=== PATIENT | male | born 1965 | race Caucasian/White ===

== ENCOUNTER 2017-03-07 12:05 | Emergency (ER) | payer MEDICAID ==
[~2017-03-07] VITALS: Ht 190.5 cm; Wt 118.4 kg
[2017-03-07 12:18] VITALS: BP 111/71
[2017-03-07] MEDS ORDERED: ESCI20TA PO (13:00)
== END 2017-03-07 13:56 | disposition home or self-care (01) ==
LOC: ED 13:53
DX: Z76.0 Encounter for issue of repeat prescription (principal); F32.9 Major depressive disorder, single episode, unspecified; F10.129 Alcohol abuse with intoxication, unspecified
CPT/HCPCS: 99283

== ENCOUNTER 2017-03-15 07:27 | Emergency (ER) | payer MEDICAID ==
[~2017-03-15] VITALS: Ht 190.5 cm; Wt 117.6 kg
[~2017-03-15 07:27] MED LIST: ESCI20TA PO
[2017-03-15 07:28] VITALS: BP 123/71
[2017-03-15] MEDS ORDERED: TRAZ100T15 PO (07:34)
[2017-03-15] MEDS ORDERED: NALOXONE 0.4 MG/ML, 1ML ONE (08:27)
== END 2017-03-15 08:09 | disposition home or self-care (01) ==
LOC: ED 08:03
DX: Z76.0 Encounter for issue of repeat prescription (principal); F17.200 Nicotine dependence, unspecified, uncomplicated
CPT/HCPCS: 99283

== ENCOUNTER 2017-03-23 07:25 | Emergency (ER) | payer MEDICAID ==
[~2017-03-23] VITALS: Ht 190.5 cm; Wt 117.1 kg
[~2017-03-23 07:25] MED LIST changes: +TRAZ100T15 PO
[2017-03-23 07:28] VITALS: BP 135/83
== END 2017-03-23 08:13 | disposition home or self-care (01) ==
LOC: ED 08:00
DX: Z76.0 Encounter for issue of repeat prescription (principal); F32.9 Major depressive disorder, single episode, unspecified
CPT/HCPCS: 99283

== ENCOUNTER 2017-04-15 09:40 | Emergency (ER) | payer MEDICAID ==
[~2017-04-15] VITALS: Ht 190.5 cm; Wt 118.0 kg
[2017-04-15 11:49] LABS: RAPID INFLUENZA A Negative (Negative); RAPID INFLUENZA B Negative (Negative)
[2017-04-15 12:13] VITALS: BP 133/78
== END 2017-04-15 12:15 | disposition home or self-care (01) ==
LOC: ED 12:14
DX: B34.9 Viral infection, unspecified (principal); I10 Essential (primary) hypertension
CPT/HCPCS: 87400; 99284

== ENCOUNTER 2017-04-26 07:14 | Emergency (ER) | payer SELFPAY ==
[~2017-04-26] VITALS: Ht 190.5 cm; Wt 120.3 kg
[2017-04-26 07:16] VITALS: BP 132/86
== END 2017-04-26 08:04 | disposition home or self-care (01) ==
LOC: ED 07:55
DX: Z76.0 Encounter for issue of repeat prescription (principal); I10 Essential (primary) hypertension; F17.210 Nicotine dependence, cigarettes, uncomplicated
CPT/HCPCS: 99283

== ENCOUNTER 2017-07-06 00:23 | Inpatient (IN) | payer OTHER ==
[~2017-07-06] VITALS: Ht 190.5 cm; Wt 123.1 kg
[2017-07-06] MEDS ORDERED: ONDANSETRON 2MG/ML, 2ML IVPush ONE (01:00)
[2017-07-06] MEDS ORDERED: SODIUM CHLORIDE 0.9% 1,000ML IVBOLUS ONE ×2 (01:00→02:00)
[2017-07-06] MEDS ORDERED: SODIUM CHLORIDE FLUSH 10ML SYR IVF ONE (01:00)
[2017-07-06 01:17] LABS: HEMATOCRIT 36.1 % (39.2-51.8); HEMOGLOBIN 12.1 g/dL (13.7-18.0); WHITE BLOOD COUNT 5.9 x10^3/uL (3.4-10)
[2017-07-06] MEDS ORDERED: ONDANSETRON 2MG/ML, 2ML ONE (01:17)
[2017-07-06 01:20] LABS: BLOOD UREA NITROGEN 12 mg/dL (7-18)
[2017-07-06 01:25] LABS: ASPARTATE AMINO TRANSFERASE 69 U/L (15-37)
[2017-07-06 01:28] LABS: IS PT STATUS REG ER OR PRE ER? YES
[2017-07-06 01:34] LABS: DIFF TOTAL CELLS COUNTED 100 CELL DIFF
[2017-07-06 01:38] LABS: VERIFY COUNTS? YES
[2017-07-06 01:41] LABS: ANISOCYTOSIS 1+; POLYCHROMASIA 1+
[2017-07-06] MEDS ORDERED: LORazepam 2 MG/ML, 1ML ONE (01:54)
[2017-07-06] MEDS ORDERED: LORazepam 2 MG/ML, 1ML IVPush ONE (02:00)
[2017-07-06] MEDS ORDERED: THIAMINE 100MG TABLET PO ONE (02:00)
[2017-07-06] MEDS ORDERED: THIAMINE 100MG TABLET ONE (02:23)
[2017-07-06] MEDS ORDERED: CEFTRIAXONE PMX 1GM/50ML 50 ML ONE (02:28)
[2017-07-06] MEDS ORDERED: CEFTRIAXONE PMX 1GM/50ML 50 ML IVPB ONE (02:30)
[2017-07-06 04:07] VITALS: BP 123/75
[2017-07-06] MEDS ORDERED: POTASSIUM CHLORIDE 20 MEQ, MAGNESIUM SULFATE 2 GM, THIAMINE 100 MG, MVI ADULT 10 ML, FO... IV SCH (06:27)
[2017-07-06] MEDS: SODIUM CHLORIDE 0.9% 1,000 ML IV SCH ×2 (06:27→13:00)
[2017-07-06] MEDS ORDERED: ACETAMINOPHEN 325 MG TABLET PO PRN (06:30)
[2017-07-06] MEDS ORDERED: CHLORDIAZEPOXIDE 25 MG CAPSULE PO PRN ×3 (06:30)
[2017-07-06] MEDS ORDERED: DOCUSATE 100 MG CAPSULE PO PRN (06:30)
[2017-07-06] MEDS ORDERED: PROMETHAZINE 12.5 MG SUPP PR PRN (06:30)
[2017-07-06] MEDS: NICOTINE 14MG/24 HR PATCH.TD24 TD SCH (06:30)
[2017-07-06] MEDS ORDERED: POLYETHYLENE GLYCOL 17 GM PACKET PO PRN (06:30)
[2017-07-06] MEDS ORDERED: LORazepam 1MG TABLET PO PRN ×4 (06:30)
[2017-07-06] MEDS ORDERED: LORazepam 2 MG/ML, 1ML IV PRN ×3 (06:30)
[2017-07-06] MEDS ORDERED: CHLORDIAZEPOXIDE 10 MG CAPSULE PO PRN (06:30)
[2017-07-06] MEDS ORDERED: ONDANSETRON ODT 4 MG PO PRN (06:30)
[2017-07-06 07:00] VITALS: BP 124/80
[2017-07-06] MEDS ORDERED: CEFTRIAXONE 1,000 MG IV SCH (07:00)
[2017-07-06 07:39] LABS: HEMATOCRIT 34.2 % (39.2-51.8); HEMOGLOBIN 11.6 g/dL (13.7-18.0); WHITE BLOOD COUNT 6.2 x10^3/uL (3.4-10)
[2017-07-06 07:48] LABS: BLOOD UREA NITROGEN 12 mg/dL (7-18)
[2017-07-06 07:54] LABS: ASPARTATE AMINO TRANSFERASE 58 U/L (15-37)
[2017-07-06 07:55] LABS: IS PT STATUS REG ER OR PRE ER? NO
[2017-07-06 08:13] LABS: DIFF TOTAL CELLS COUNTED 100 CELL DIFF
[2017-07-06 08:14] LABS: ANISOCYTOSIS 1+; POLYCHROMASIA 1+; VERIFY COUNTS? YES
[2017-07-06 08:15] LABS: STOMATOCYTES 1+
[2017-07-06] MEDS: HEPARIN 5,000 UNITS/ML, 1ML SQ SCH ×2 (09:00→17:24)
[2017-07-06] MEDS ORDERED: POTASSIUM PHOSPHATE 22 MEQ in SODIUM CHLORIDE 0.9% 500 ML IV ONE (09:00)
[2017-07-06] MEDS ORDERED: POTASSIUM PHOS 4.4 MEQ/ML IV ONE (09:00)
[2017-07-06] MEDS: ASPIRIN 325 MG TABLET EC PO SCH (09:00)
[2017-07-06] MEDS: MULTIVITAMINS/MINERALS TABLET PO SCH (09:17)
[2017-07-06] MEDS ORDERED: ALBUTEROL SULFATE 2.5 MG/3 ML NPPB PRN (10:30)
[2017-07-06] MEDS ORDERED: ALBUTEROL SULFATE 2.5 MG/3 ML NPPB SCH ×2 (11:00→16:00)
[2017-07-06 12:06] VITALS: BP 126/76
[2017-07-06] MEDS: LORazepam 2 MG/ML, 1ML IV PRN ×3 (12:16→22:47)
[2017-07-06 12:41] LABS: IS PT STATUS REG ER OR PRE ER? NO
[2017-07-06 18:49] VITALS: BP 114/74
[2017-07-07] MEDS: CEFTRIAXONE PMX 1GM/50ML 50 ML IV SCH (02:01)
[2017-07-07] MEDS: HEPARIN 5,000 UNITS/ML, 1ML SQ SCH ×3 (02:01→17:48)
[2017-07-07] MEDS: LORazepam 2 MG/ML, 1ML IV PRN ×2 (02:01→05:45)
[2017-07-07 02:11] VITALS: BP 114/74
[2017-07-07] MEDS: SODIUM CHLORIDE 0.9% 1,000 ML IV SCH ×3 (05:07→20:55)
[2017-07-07] MEDS: ASPIRIN 325 MG TABLET EC PO SCH (05:45)
[2017-07-07] MEDS: NICOTINE 14MG/24 HR PATCH.TD24 TD SCH (05:51)
[2017-07-07 07:10] VITALS: BP 112/75
[2017-07-07] MEDS: MULTIVITAMINS/MINERALS TABLET PO SCH (08:38)
[2017-07-07] MEDS: THIAMINE 100MG TABLET PO SCH (13:01)
[2017-07-07] MEDS: FOLIC ACID 1 MG TABLET PO SCH (13:01)
[2017-07-07 14:00] VITALS: BP 117/78
[2017-07-07 18:41] VITALS: BP 108/70
[2017-07-08] MEDS: HEPARIN 5,000 UNITS/ML, 1ML SQ SCH ×3 (02:56→17:39)
[2017-07-08] MEDS: CEFTRIAXONE PMX 1GM/50ML 50 ML IV SCH (02:56)
[2017-07-08] MEDS: LORazepam 0.5MG TABLET PO PRN ×2 (02:56→09:40)
[2017-07-08 03:11] VITALS: BP 120/80
[2017-07-08 05:46] LABS: ASPARTATE AMINO TRANSFERASE 80 U/L (15-37); BLOOD UREA NITROGEN 10 mg/dL (7-18)
[2017-07-08] MEDS: NICOTINE 14MG/24 HR PATCH.TD24 TD SCH (05:51)
[2017-07-08] MEDS: SODIUM CHLORIDE 0.9% 1,000 ML IV SCH ×2 (05:51→14:10)
[2017-07-08] MEDS: ASPIRIN 325 MG TABLET EC PO SCH (05:51)
[2017-07-08 07:08] VITALS: BP 119/81
[2017-07-08] MEDS: MULTIVITAMINS/MINERALS TABLET PO SCH (09:40)
[2017-07-08] MEDS: THIAMINE 100MG TABLET PO SCH (09:40)
[2017-07-08] MEDS: FOLIC ACID 1 MG TABLET PO SCH (09:40)
[2017-07-08 14:02] VITALS: BP 122/84
[2017-07-08] MEDS ORDERED: POTASSIUM PHOS 4.4 MEQ/ML IV ONE (14:30)
[2017-07-08] MEDS ORDERED: POTASSIUM PHOSPHATE 22 MEQ in SODIUM CHLORIDE 0.9% 500 ML IV ONE (15:00)
[2017-07-08] MEDS: NS + 20MEQ KCL 1,000 ML IV SCH (17:09)
[2017-07-08] MEDS: metroNIDAZOLE 500 MG TABLET PO SCH (17:09)
[2017-07-08 21:49] VITALS: BP 122/71
[2017-07-09] MEDS: HEPARIN 5,000 UNITS/ML, 1ML SQ SCH ×3 (00:50→18:10)
[2017-07-09] MEDS: metroNIDAZOLE 500 MG TABLET PO SCH ×3 (00:50→17:04)
[2017-07-09] MEDS: NS + 20MEQ KCL 1,000 ML IV SCH ×2 (01:04→10:01)
[2017-07-09 01:10] VITALS: BP 109/72
[2017-07-09] MEDS: CEFTRIAXONE PMX 1GM/50ML 50 ML IV SCH (02:11)
[2017-07-09] MEDS: NICOTINE 14MG/24 HR PATCH.TD24 TD SCH (05:46)
[2017-07-09] MEDS: ASPIRIN 325 MG TABLET EC PO SCH (05:46)
[2017-07-09 06:11] LABS: ASPARTATE AMINO TRANSFERASE 105 U/L (15-37); BLOOD UREA NITROGEN 11 mg/dL (7-18)
[2017-07-09 06:55] VITALS: BP 122/64
[2017-07-09] MEDS: THIAMINE 100MG TABLET PO SCH (10:06)
[2017-07-09] MEDS: MULTIVITAMINS/MINERALS TABLET PO SCH (10:06)
[2017-07-09] MEDS: FOLIC ACID 1 MG TABLET PO SCH (10:06)
[2017-07-09 13:00] VITALS: BP 111/77
[2017-07-09 19:09] VITALS: BP 117/78
[2017-07-10] MEDS: metroNIDAZOLE 500 MG TABLET PO SCH ×3 (00:30→17:37)
[2017-07-10] MEDS: HEPARIN 5,000 UNITS/ML, 1ML SQ SCH ×3 (02:00→18:00)
[2017-07-10 02:19] VITALS: BP 111/77
[2017-07-10] MEDS: CEFTRIAXONE PMX 1GM/50ML 50 ML IV SCH (02:22)
[2017-07-10] MEDS: ASPIRIN 325 MG TABLET EC PO SCH (05:34)
[2017-07-10] MEDS: NICOTINE 14MG/24 HR PATCH.TD24 TD SCH (05:34)
[2017-07-10 07:45] VITALS: BP 121/79
[2017-07-10] MEDS: THIAMINE 100MG TABLET PO SCH (09:22)
[2017-07-10] MEDS: FOLIC ACID 1 MG TABLET PO SCH (09:22)
[2017-07-10] MEDS: MULTIVITAMINS/MINERALS TABLET PO SCH (09:22)
[2017-07-10 12:36] VITALS: BP 116/76
[2017-07-10] MEDS: OXYcodone IR 5MG TABLET PO PRN ×2 (14:22→19:02)
[2017-07-10 20:34] VITALS: BP 115/73
[2017-07-10] MEDS: FAMOTIDINE 20 MG TABLET PO SCH (21:59)
[2017-07-11] MEDS: OXYcodone IR 5MG TABLET PO PRN ×2 (00:58→19:02)
[2017-07-11] MEDS: metroNIDAZOLE 500 MG TABLET PO SCH ×3 (00:58→18:01)
[2017-07-11] MEDS: HEPARIN 5,000 UNITS/ML, 1ML SQ SCH ×3 (02:00→17:35)
[2017-07-11 03:23] VITALS: BP 117/75
[2017-07-11 06:06] LABS: HEMATOCRIT 30.2 % (39.2-51.8); HEMOGLOBIN 10.3 g/dL (13.7-18.0); WHITE BLOOD COUNT 6.5 x10^3/uL (3.4-10)
[2017-07-11] MEDS: NICOTINE 14MG/24 HR PATCH.TD24 TD SCH (06:23)
[2017-07-11 07:31] VITALS: BP 120/79
[2017-07-11] MEDS: MULTIVITAMINS/MINERALS TABLET PO SCH (08:40)
[2017-07-11] MEDS: FOLIC ACID 1 MG TABLET PO SCH (08:41)
[2017-07-11] MEDS: THIAMINE 100MG TABLET PO SCH (08:41)
[2017-07-11 13:16] VITALS: BP 123/85
[2017-07-11 18:52] VITALS: BP 104/68
[2017-07-11] MEDS: FAMOTIDINE 20 MG TABLET PO SCH (20:51)
[2017-07-12] MEDS: OXYcodone IR 5MG TABLET PO PRN ×5 (00:20→21:19)
[2017-07-12] MEDS: metroNIDAZOLE 500 MG TABLET PO SCH ×3 (00:20→17:57)
[2017-07-12] MEDS: HEPARIN 5,000 UNITS/ML, 1ML SQ SCH ×3 (02:00→17:57)
[2017-07-12 02:11] VITALS: BP 108/66
[2017-07-12] MEDS: NICOTINE 14MG/24 HR PATCH.TD24 TD SCH (05:41)
[2017-07-12] MEDS: FOLIC ACID 1 MG TABLET PO SCH (09:15)
[2017-07-12] MEDS: MULTIVITAMINS/MINERALS TABLET PO SCH (09:15)
[2017-07-12] MEDS: THIAMINE 100MG TABLET PO SCH (09:15)
[2017-07-12 10:57] LABS: BLOOD UREA NITROGEN 12 mg/dL (7-18)
[2017-07-12 11:00] LABS: ASPARTATE AMINO TRANSFERASE 42 U/L (15-37)
[2017-07-12] MEDS: PANTOPROZOLE 40MG TABLET PO SCH (11:21)
[2017-07-12 11:22] VITALS: BP 112/71
[2017-07-12 14:26] VITALS: BP 102/67
[2017-07-12 20:35] VITALS: BP 101/68
[2017-07-13 00:21] VITALS: BP 111/71
[2017-07-13] MEDS: metroNIDAZOLE 500 MG TABLET PO SCH ×3 (01:08→18:13)
[2017-07-13] MEDS: OXYcodone IR 5MG TABLET PO PRN ×3 (01:08→23:58)
[2017-07-13] MEDS: HEPARIN 5,000 UNITS/ML, 1ML SQ SCH ×3 (02:00→17:28)
[2017-07-13] MEDS: NICOTINE 14MG/24 HR PATCH.TD24 TD SCH (04:44)
[2017-07-13 06:02] LABS: HEMATOCRIT 29.5 % (39.2-51.8); HEMOGLOBIN 9.8 g/dL (13.7-18.0); WHITE BLOOD COUNT 4.6 x10^3/uL (3.4-10)
[2017-07-13 06:30] LABS: DIFF TOTAL CELLS COUNTED 100 CELL DIFF
[2017-07-13 06:32] LABS: ANISOCYTOSIS 1+; VERIFY COUNTS? YES
[2017-07-13 06:33] LABS: POLYCHROMASIA 1+
[2017-07-13] MEDS: PANTOPROZOLE 40MG TABLET PO SCH (07:42)
[2017-07-13 07:44] VITALS: BP 107/71
[2017-07-13] MEDS: FOLIC ACID 1 MG TABLET PO SCH (10:30)
[2017-07-13] MEDS: THIAMINE 100MG TABLET PO SCH (10:30)
[2017-07-13] MEDS: MULTIVITAMINS/MINERALS TABLET PO SCH (10:30)
[2017-07-13 13:38] VITALS: BP 100/61
[2017-07-13 18:58] VITALS: BP 102/65
[2017-07-14 01:15] VITALS: BP 107/70
[2017-07-14] MEDS: metroNIDAZOLE 500 MG TABLET PO SCH ×2 (01:56→12:22)
[2017-07-14] MEDS: HEPARIN 5,000 UNITS/ML, 1ML SQ SCH ×2 (01:56→10:00)
[2017-07-14] MEDS: NICOTINE 14MG/24 HR PATCH.TD24 TD SCH (05:49)
[2017-07-14 08:20] VITALS: BP 114/76
[2017-07-14] MEDS: PANTOPROZOLE 40MG TABLET PO SCH (08:35)
[2017-07-14] MEDS: THIAMINE 100MG TABLET PO SCH (08:35)
[2017-07-14] MEDS: MULTIVITAMINS/MINERALS TABLET PO SCH (08:35)
[2017-07-14] MEDS: FOLIC ACID 1 MG TABLET PO SCH (08:35)
[2017-07-14] MEDS: OXYcodone IR 5MG TABLET PO PRN (08:35)
[2017-07-14] MEDS ORDERED: THIA100T6 PO (11:27)
[2017-07-14] MEDS ORDERED: PANT40TA5 PO (11:27)
[2017-07-14] MEDS ORDERED: ONDA4TAB13 PO (11:27)
[2017-07-14] MEDS ORDERED: METR500T PO (11:27)
[2017-07-14 12:15] VITALS: BP 106/68
== END 2017-07-14 14:27 | disposition home or self-care (01) | DRG 871 ==
LOC: ED 01:15 → EDIP 02:39 → 3NE 04:56
PROVIDERS: ADMIT Surgery; ATTEND Internal Medicine
DX: A41.9 Sepsis, unspecified organism (principal); E43 Unspecified severe protein-calorie malnutrition; K85.20 Alcohol induced acute pancreatitis without necrosis or infection; D69.6 Thrombocytopenia, unspecified; A04.72 Enterocolitis due to Clostridium difficile, not specified as recurrent; E66.01 Morbid (severe) obesity due to excess calories; E83.39 Other disorders of phosphorus metabolism; K70.0 Alcoholic fatty liver; K70.30 Alcoholic cirrhosis of liver without ascites; E83.42 Hypomagnesemia; E87.1 Hypo-osmolality and hyponatremia; N30.90 Cystitis, unspecified without hematuria; E86.0 Dehydration; D64.9 Anemia, unspecified; E87.6 Hypokalemia; F10.229 Alcohol dependence with intoxication, unspecified; F32.9 Major depressive disorder, single episode, unspecified; I10 Essential (primary) hypertension; K29.20 Alcoholic gastritis without bleeding; Z68.33 Body mass index [BMI] 33.0-33.9, adult; Z72.0 Tobacco use
CPT/HCPCS: 36415; 71020; 76700; 80053; 80076; 80307; 81001; 83036; 83690; 83735; 84100; 84443; 84484; 85025; 85610; 87040; 87086; 87324; 87493; 93005; 93306; 94640; 96361; 96365; 96375; J0696; J1644; J2405; J3411; J3475; J3480; J7042; G0479; J2060; J7030; J7040

== ENCOUNTER 2017-10-30 12:32 | Emergency (ER) | payer MEDICAID, OTHER ==
[~2017-10-30] VITALS: Ht 190.5 cm; Wt 116.0 kg
[~2017-10-30 12:32] MED LIST changes: +METR500T PO; +ONDA4TAB13 PO; +PANT40TA5 PO; +THIA100T6 PO
[2017-10-30 12:34] VITALS: BP 153/99
[2017-10-30] MEDS ORDERED: BACITRACIN ZINC OINT 500U/GM, 0.9 GM ONE (13:23)
== END 2017-10-30 13:34 | disposition home or self-care (01) ==
LOC: ED 13:20
DX: T23.061A Burn of unspecified degree of back of right hand, initial encounter (principal); T31.0 Burns involving less than 10% of body surface; L03.113 Cellulitis of right upper limb; F32.9 Major depressive disorder, single episode, unspecified; X12.XXXA Contact with other hot fluids, initial encounter; Y93.89 Activity, other specified; Y99.8 Other external cause status; Y92.89 Other specified places as the place of occurrence of the external cause
CPT/HCPCS: 16020; 99284

== ENCOUNTER 2017-12-13 20:24 | Emergency (ER) | payer MEDICAID ==
[~2017-12-13] VITALS: Ht 190.5 cm; Wt 127.3 kg
[2017-12-13] MEDS ORDERED: ESCI20TA PO (21:43)
[2017-12-14 09:04] VITALS: BP 104/74
== END 2017-12-14 09:06 | disposition home or self-care (01) ==
LOC: ED 22:08
DX: F10.220 Alcohol dependence with intoxication, uncomplicated (principal); I10 Essential (primary) hypertension; K74.60 Unspecified cirrhosis of liver
CPT/HCPCS: 36415; 80307; 99283

== ENCOUNTER 2019-09-23 10:16 | Emergency (ER) | payer MEDICAID ==
[~2019-09-23] VITALS: Ht 182.9 cm; Wt 127.8 kg
[~2019-09-23 10:16] MED LIST changes: -THIA100T6 PO; +THIA100T67 PO; +TRAZ-175 PO; -TRAZ100T15 PO
[2019-09-23 11:08] VITALS: BP 116/78
[2019-09-23] MEDS ORDERED: KETOROLAC 30 MG/1 ML ONE (12:13)
[2019-09-23] MEDS ORDERED: KETOROLAC 30 MG/1 ML IM ONE (12:30)
== END 2019-09-23 12:31 | disposition home or self-care (01) ==
LOC: ED 12:02
DX: M19.90 Unspecified osteoarthritis, unspecified site (principal); Z76.0 Encounter for issue of repeat prescription; F17.200 Nicotine dependence, unspecified, uncomplicated; I10 Essential (primary) hypertension
CPT/HCPCS: 96372; 99283; J1885

== ENCOUNTER 2021-03-12 11:57 | Emergency (ER) | payer MEDICAID ==
[~2021-03-12] VITALS: Ht 188 cm; Wt 138.7 kg
[~2021-03-12 11:57] MED LIST changes: -ESCI20TA PO; +ESCI20TA8 PO; -PANT40TA5 PO; +PANT40TA6 PO
[2021-03-12] MEDS ORDERED: KETOROLAC 30 MG/1 ML IM ONE (12:30)
[2021-03-12 12:36] LABS: BASOPHILS % (AUTO) 1 % (0-1); EOSINOPHILS % (AUTO) 8 % (1-7); LYMPHOCYTES % (AUTO) 22 % (22-44); MEAN CORPUSCULAR HEMOGLOBIN 30.8 pg (27.5-34.5); MEAN CORPUSCULAR HGB CONC 33.7 g/dL (33.2-36.2); MONOCYTES % (AUTO) 11 % (2-9); NEUTROPHILS % (AUTO) 59 % (42-75); PLATELET COUNT 155 x10^3/uL (130-400); RED BLOOD COUNT 4.88 x10^6/uL (4.38-5.82); RED CELL DISTRIBUTION WIDTH 14.2 % (9.4-14.8)
[2021-03-12] MEDS ORDERED: KETOROLAC 30 MG/1 ML ONE (12:37)
[2021-03-12 12:46] LABS: ALANINE AMINOTRANSFERASE 21 U/L (12-78); ALBUMIN 3.1 g/dL (3.4-5.0); ANION GAP 6 mmol/L (5-15); CALCIUM 8.3 mg/dL (8.5-10.1); CHLORIDE 109 mmol/L (98-107); CREATININE 0.82 mg/dL (0.7-1.3)
[2021-03-12 12:49] LABS: ALKALINE PHOSPHATASE 37 U/L (45-117); BILIRUBIN,TOTAL 0.3 mg/dL (0.2-1.0); TOTAL PROTEIN 6.5 g/dL (6.4-8.2)
[2021-03-12 13:10] LABS: HCT (SEDRATE) 44.6 % (39.2-51.8)
[2021-03-12 13:52] VITALS: BP 149/86
--- NOTE | 2021-03-12 13:53 | NUR ---
PT REC'VD DISCHARGE INSTRUCTIONS AND EDUCATION. PT HAD NO FURHTER QUESTIONS.
[2021-03-14 15:09] LABS: ANA SCREEN NEGATIVE (Negative)
== END 2021-03-12 14:23 | disposition home or self-care (01) ==
LOC: ED 12:06
DX: M25.511 Pain in right shoulder (principal); M25.512 Pain in left shoulder; M25.562 Pain in left knee; F17.210 Nicotine dependence, cigarettes, uncomplicated; M19.90 Unspecified osteoarthritis, unspecified site; I10 Essential (primary) hypertension
CPT/HCPCS: 36415; 80053; 84550; 85025; 85651; 86038; 86063; 86430; 96372; 99283; 99406; J1885

== ENCOUNTER 2021-03-19 12:48 | Emergency (ER) | payer MEDICAID ==
--- NOTE | 2021-03-19 13:10 | NUR ---
SENIOR PAINTER: PT SIGNED PATIENT REQUEST FOR DISCHARGE FORM
== END 2021-03-19 13:29 | disposition left against medical advice (07) ==
LOC: ED 13:20
DX: R68.89 Other general symptoms and signs (principal); Z53.21 Procedure and treatment not carried out due to patient leaving prior to being seen by health care provider

== ENCOUNTER 2021-03-20 05:51 | Emergency (ER) | payer MEDICAID ==
[~2021-03-20] VITALS: Ht 188 cm; Wt 140.0 kg
[2021-03-20 07:14] VITALS: BP 126/76
--- NOTE | 2021-03-20 07:24 | NUR ---
REPORT TAKEN FROM KALIA IBRAHIM. DC ORDERS RECEIVED AFTER MD EXAM, PT GIVEN DC INSTRUCTIONS AND SCRIPT, EDUCATED REGARDING RX FOR LYRICA. PT IS A&OX4, RESPS EVEN AND UNLABORED, GAIT STEADY AND UNASSISTED. PT REQUESTING WORK NOTE, GIVEN INSTRUCTIONS WITH NOTE TO STAY HOME UNTILL Mar PER [facility]. PT AMBULATORY TO DC DESK WITH STEADY GAIT ACCOMPANIED BY . SUMAYAN AT DC.
== END 2021-03-20 07:25 | disposition home or self-care (01) ==
LOC: ED 07:20
DX: R52 Pain, unspecified (principal); I10 Essential (primary) hypertension; F17.200 Nicotine dependence, unspecified, uncomplicated
CPT/HCPCS: 99283